=== PATIENT | male | born 1985 | race Caucasian/White ===

== ENCOUNTER 2023-07-30 07:12 | Emergency (ER) | payer BC, OTHER ==
--- NOTE | 2023-07-30 07:41 | ED Cough/URI ---
General Chief Complaint: Cough/Cold/Flu Symptoms Stated Complaint: ELEV HR; COUGH Nursing Triage Note: PT REPORTS A COUGH FOR 2 WEEKS AND FEELING LIKE HIS HEART RATE IS ELEVATED. HE HAS BEEN TAKING AN ALBUTEROL INHALER, MUCINEX, AND DAYQUILL. History of Present Illness Date Seen by Provider: Jul 30, 2023 Time Seen by Provider: 07:07 Initial Comments 38-year-old male with no significant PMH, is here with complaints of cough for the past 2 weeks. Patient checked his vitals at home and noticed that he is elevated blood pressure and an elevated heart rate. Patient's had COVID a week ago. Patient has been taking DayQuil, Mucinex. Patient's PCP prescribed an albuterol inhaler and Tessalon Perles for him which she has also been taking. Denies abdominal pain, chest pain, palpitations, shortness of breath, diarrhea. Allergies and Home Medications Patient Home Medication List Home Medication List Reviewed: Yes Review of Systems Review of Systems Constitutional: no symptoms reported EENTM: no symptoms reported Respiratory: cough Cardiovascular: no symptoms reported Past Hgnrkcw-Jfkbkw-Iqfzko Hx Patient Social History Tobacco Use?: No Use of E-Cig and/or Vaping dev: No Substance use?: No Alcohol Use?: No Pt feels they are or have been: No Physical Exam Vital Signs - First Documented 07/30/23 07:17 Temp 37.3 Pulse 114 Resp 16 B/P (MAP) 159/118 (132) Pulse Ox 97 O2 Delivery Room Air Capillary Refill : Less Than 3 Seconds Height: '" Weight: lbs. oz. kg; BMI Method: General Appearance: WD/WN, no apparent distress HEENT: PERRL/EOMI, normal ENT inspection, pharynx normal Neck: non-tender, full range of motion, supple, normal inspection Respiratory: chest non-tender, lungs clear, normal breath sounds, no respiratory distress Cardiovascular: no edema, tachycardia (Heart rate approximately 100 -115/min, regular) Gastrointestinal: normal bowel sounds, non tender, soft Neurologic/Psychiatric: alert, normal mood/affect, oriented x 3 Skin: normal color Progress/Results/Core Measures Suspected Sepsis SIRS Temperature: Pulse: 114 Respiratory Rate: 16 Blood Pressure 159 /118 Mean: 132 Results/Orders Lab Results Laboratory Tests Test 07/30/23 07:38 Range/Units Influenza Type A (RT-PCR) Not Detected Not Detecte Influenza Type B (RT-PCR) Not Detected Not Detecte SARS-CoV-2 RNA (RT-PCR) Not Detected Not Detecte My Orders Orders - KEVYN BRADY MD Influenza A And B By Pcr (07/30/23 07:35) Covid 19 Inhouse Test (07/30/23 07:35) Vital Signs/I&O 07/30/23 07:17 Temp 37.3 Pulse 114 Resp 16 B/P (MAP) 159/118 (132) Pulse Ox 97 O2 Delivery Room Air Capillary Refill : Less Than 3 Seconds Blood Pressure Mean: 132 Progress Note : Progress Note 1. BRONCHITIS - COVID Test/ Rapid flu test: negative - Advised to stop using Dayquill and mucinex which can cause elevated blood pressure - Continue Tessalon Perle as prescribed for cough - Continue to use Albuterol inhaler, only as needed for shortness of breath - Azithromycin prescription daily for 3 days - Follow up with PCP within 7 days if needed. -The patient was seen in the ED, and treated appropriately to presentation at a specific point in time. Patient is informed that there is a possibility that disease and illness can evolve and change in acuity rapidly or slowly after patient is discharged from the ER. Precautionary advice given to the patient for immediate return to ER if symptoms worsen or do not resolve, and to seek emergency care sooner rather than later. Pt also advised on the importance of PCP follow up and compliance with management and follow up plan with PCP and/or specialist, as this is part of the management plan. Pt verbally expressed understanding. ECG Initial ECG Impression Date: Jul 30, 2023 Initial ECG Impression Time: 08:14 Initial ECG Rate: 112 Initial ECG Rhythm: S.Tach Initial ECG Intervals: Normal Initial ECG Comparisson: No Previous ECG Available Departure Impression Primary Impression: Bronchitis Disposition: 01 HOME, SELF-CARE Condition: Stable Departure-Patient Inst. Referrals: SELF,KELLY MONTEMAYOR (PCP) Primary Care Physician Patient Instructions: Chronic Bronchitis (DC), Bronchitis, Adult ED Add. Discharge Instructions: - Advised to stop using Dayquill and mucinex which can cause elevated blood pressure - Continue Tessalon Perle as prescribed for cough - Continue to use Albuterol inhaler, only as needed for shortness of breath - Azithromycin prescription daily for 3 days - Follow up with PCP within 7 days if needed. All discharge instructions reviewed with patient and/or family. Voiced understanding. Scripts Azithromycin (Azithromycin) 500 Mg Tablet 500 MG PO DAILY for 3 Days, #3 TAB Prov: KEVYN BRADY MD 07/30/23 KEVYN BRADY MD Jul 30, 2023 07:41
[2023-07-30] MEDS ORDERED: AZIT500T9 PO (08:12)
[2023-07-30 08:16] VITALS: BP 136/113
== END 2023-07-30 08:22 | disposition home or self-care (01) ==
LOC: ER FS 07:14
DX: J40 Bronchitis, not specified as acute or chronic (principal); Z20.822 Contact with and (suspected) exposure to COVID-19
CPT/HCPCS: 87636; 93005